=== PATIENT | female | born 1960 | race Caucasian/White ===

== ENCOUNTER 2023-06-08 08:07 | Outpatient (CLI) | payer BC | END 2023-06-08 08:08 | disposition home or self-care (01) | LOC: BICMAMMO 08:07 | PROVIDERS: ATTEND Family Medicine | DX: N63.11 Unspecified lump in the right breast, upper outer quadrant (principal); Z91.89 Other specified personal risk factors, not elsewhere classified; Z80.3 Family history of malignant neoplasm of breast | CPT/HCPCS: 77066; G0279 ==